=== PATIENT | male | born 1980 | race Caucasian/White ===

== ENCOUNTER 2023-04-22 20:24 | Emergency (ER) | payer OTHER ==
[2023-04-22 21:07] VITALS: BP 146/98; PULSE 99; RESP 16; TEMP 98.5; BMI 31.8
[2023-04-22] MEDS ORDERED: methylPREDNISolone NA SUCC 125 MG/2 ML VIAL IVPUSH ONE (23:12)
[2023-04-22] MEDS ORDERED: methylPREDNISolone NA SUCC 125 MG/2 ML VIAL ONE (23:25)
[2023-04-22 23:39] LABS: BASO % 0.7 % (0-2.0); EOS % 0.3 % (0-4.5); HEMATOCRIT 48.4 % (35.4-49); HEMOGLOBIN 16.9 GM/dL (11.7-16.9); LYMPH % 23.2 % (8-40); MCH 30.7 pg (25.7-33.7); MCHC 34.9 g/dl (32.0-35.9); MEAN CELL VOLUME 87.8 fl (80-96); MEAN PLT VOLUME 11.3 fl (7.5-11.1); MONO % 8.3 % (3.8-10.2); NEUT % 67.5 % (42.8-82.8); PLATELET COUNT 175 10^3/uL (134-434); RBC 5.51 M/mm3 (4.00-5.60); RDW 13.4 % (11.9-15.9); WHITE BLOOD COUNT 11.5 K/mm3 (4.0-10.0)
[2023-04-22 23:57] LABS: POTASSIUM 4.3 mmol/L (3.5-5.1)
[2023-04-22 23:59] LABS: CALCIUM 9.5 mg/dL (8.5-10.1)
[2023-04-23] LABS: ALBUMIN 4.4 g/dl (3.4-5.0); BLOOD UREA NITROGEN 18.8 mg/dL (7-18)
[2023-04-23 00:03] LABS: CREATININE 0.8 mg/dL (0.55-1.3)
[2023-04-23 00:04] LABS: BILIRUBIN,TOTAL 1.5 mg/dL (0.2-1)
[2023-04-23 00:05] LABS: TOT PROT 8.6 g/dl (6.4-8.2)
[2023-04-23] MEDS ORDERED: METOCLOPRAMIDE HCL INJECTION 10 MG/2 ML VIAL IVPUSH ONE (00:40)
[2023-04-23] MEDS ORDERED: SODIUM CHLORIDE 0.9% 1000 ML INFUS.BAG IV ONE (00:41)
[2023-04-23] MEDS ORDERED: MECLIZINE HCL 25 MG TABLET (FP) PO ONE (01:41)
[2023-04-23] MEDS ORDERED: ONDANSETRON *ODT* 4 MG TABLET SL ONE (01:41)
[2023-04-23] MEDS ORDERED: METOCLOPRAMIDE HCL INJECTION 10 MG/2 ML VIAL ONE (01:44)
[2023-04-23] MEDS ORDERED: ONDANSETRON 4 MG/2 ML VIAL ONE (01:44)
[2023-04-23] MEDS ORDERED: ONDANSETRON 4 MG/2 ML VIAL IVPUSH ONE ×2 (02:09→02:16)
[2023-04-23] MEDS ORDERED: MECLIZINE HCL 25 MG TABLET (FP) ONE (02:33)
== END 2023-04-23 02:35 | disposition home or self-care (01) ==
LOC: JER 20:24
PROC: 3E033GC Introduction of Other Therapeutic Substance into Peripheral Vein, Percutaneous Approach (ICD-10-PCS; principal; 2023-04-22)
PROC: 3E033GC Introduction of Other Therapeutic Substance into Peripheral Vein, Percutaneous Approach (ICD-10-PCS; 2023-04-22)
PROC: 3E033GC Introduction of Other Therapeutic Substance into Peripheral Vein, Percutaneous Approach (ICD-10-PCS; 2023-04-22)
DX: R42 Dizziness and giddiness (principal); H92.01 Otalgia, right ear; R09.81 Nasal congestion; R73.9 Hyperglycemia, unspecified; R74.01 Elevation of levels of liver transaminase levels; H69.92 Unspecified Eustachian tube disorder, left ear
CPT/HCPCS: 36415; 70450-TC; 80053; 82150; 83605; 83690; 85025; 99284-25